=== PATIENT | male | born 1985 | race Caucasian/White ===

== ENCOUNTER 2019-04-25 01:47 | Emergency (ER) | payer SELFPAY ==
[~2019-04-25] VITALS: Ht 170.2 cm; Wt 49.8 kg
[~2019-04-25 01:47] MED LIST: ALBU18HF INHALATION; IBUP-1561 PO
[2019-04-25 01:59] VITALS: BP 143/69; PULSE 86; RESP 16; Ht 170.2 cm; Wt 49.8 kg
[2019-04-25] MEDS ORDERED: IBUPROFEN 600 MG TAB PO ONE (05:00)
== END 2019-04-25 06:31 | disposition left against medical advice (07) ==
LOC: FTE 01:47
DX: S69.92XA Unspecified injury of left wrist, hand and finger(s), initial encounter (principal); F17.210 Nicotine dependence, cigarettes, uncomplicated; W17.89XA Other fall from one level to another, initial encounter; Y92.9 Unspecified place or not applicable; Z76.0 Encounter for issue of repeat prescription